=== PATIENT | female | born 1955 | race Asian ===

== ENCOUNTER 2020-10-21 13:34 | Emergency (ER) | payer OTHER, MEDICAID ==
[~2020-10-21] VITALS: Ht 160 cm; Wt 61.7 kg
[2020-10-21 13:37] VITALS: Ht 160 cm; Wt 61.7 kg
[2020-10-21 17:20] VITALS: BP 132/72
== END 2020-10-21 16:20 | disposition home or self-care (01) ==
LOC: ED 13:34
DX: S09.8XXA Other specified injuries of head, initial encounter (principal); R03.0 Elevated blood-pressure reading, without diagnosis of hypertension; E78.00 Pure hypercholesterolemia, unspecified; M25.511 Pain in right shoulder; W22.8XXA Striking against or struck by other objects, initial encounter; Y93.89 Activity, other specified; Y92.89 Other specified places as the place of occurrence of the external cause; Y99.8 Other external cause status
CPT/HCPCS: 90715